=== PATIENT | male | born 1990 | race African-American/Black ===

== ENCOUNTER 2018-08-15 06:27 | Observation (INO) ==
[2018-08-15] MEDS ORDERED: Morphine Sulfate Inj 8 MG/ML Vial IV.PUSH ONE (06:33)
--- NOTE | 2018-08-15 07:35 | ED ---
HPI General Chief complaint: Abdominal Pain Stated complaint: Medical Time Seen by Provider: 08/15/18 06:29 Source: patient Mode of arrival: EMS Limitations: no limitations History of Present Illness HPI Narrative: 28-year-old male came to the emergency room brought in by EMS for sudden onset left distal leg pain. Patient seemed very uncomfortable. Says the pain is 10 out of 10. He is never had this kind of pain before. Patient says he was sleeping when the pain woke him up. Vital signs are stable otherwise. He is never had this kind of pain in the past. It radiates to his abdomen. He has been nauseous and soon after arriving patient started to vomit. No aggravating or relieving symptoms identified. The onset has been just prior to arrival. Related Data Home Medications Medication Instructions Recorded Confirmed No Known Home Medications 08/15/18 08/15/18 Allergies Allergy/AdvReac Type Severity Reaction Status Date / Time Penicillins Allergy Intermediate Hives Verified 05/02/18 08:14 shellfish derived Allergy Intermediate Hives Verified 05/02/18 08:14 Review of Systems ROS: all other systems reviewed are negative REPLACED BY [facility] Medical History Medical History H/O pilonidal cyst (Acute) Social History Social History Substance History: Active Abuse Second Hand Smoke Exposure: Yes Smoking Status: Current every day smoker Tobacco Type: Cigarettes How Often Do You Have a Drink Containing Alcohol: Never Recent Travel in [facility] within the Last 8 Weeks: No Recent Out of Country Travel within the Last 8 Weeks: No Substance Abuse Detail Marijuana: Substance Use Status: Active Route Used Substance Abuse: By Mouth Reason for Use: Calm Down Immunization History Tetanus Immunization: <5 Years Exam Narrative Exam Narrative: GENERAL: Awake, alert, anxious, severe distress SKIN: Focused skin assessment warm/dry. HEAD: Atraumatic. Normocephalic. EYES: Pupils equal and round. No scleral icterus. No injection or drainage. ENT: No nasal bleeding or discharge. Mucous membranes pink and moist. NECK: Trachea midline. No JVD. CARDIOVASCULAR: Regular rate and rhythm. No murmur appreciated. RESPIRATORY: No accessory muscle use. Clear to auscultation. Breath sounds equal bilaterally. GASTROINTESTINAL: Abdomen soft, non-tender, nondistended. Hepatic and splenic margins not palpable. : The left testicle appears to be high rise and talked. No cremasteric reflex. Tender to touch. MUSCULOSKELETAL: No obvious deformities. No clubbing. No cyanosis. No edema. NEUROLOGICAL: Awake and alert. No obvious cranial nerve deficits. Motor grossly within normal limits. Normal speech. PSYCHIATRIC: Appropriate mood and affect; insight and judgment normal. Course Reevaluation(s) Reevaluation #1: Patient updated and agrees to operation Time: 08:45 Consultations Consultation #1: dr cerrato will arrange for patient to got to the OR 844 Initial Documented Vital Signs Pulse Rate 60 08/15/18 06:32 Respiratory Rate 22 08/15/18 06:32 Blood Pressure 143/88 H 08/15/18 06:32 Pulse Oximetry 100 08/15/18 06:32 Last Documented Vital Signs Temperature 98.6 F 08/16/18 16:10 Pulse Rate 64 08/16/18 16:10 Respiratory Rate 18 08/16/18 16:10 Blood Pressure 116/70 08/16/18 16:10 Pulse Oximetry 99 08/16/18 16:10 Sign Out Sign Out Data: Patient Sign Out occurred on 08/15/18 at 07:44. Patient's care was discussed, and care was transferred from Rex Hunt to Mabel Gustafson MD. Sign Out Comment: High suspicion for testicular torsion. Follow-up testicular ultrasound report. Consult urology because of high suspicion. Last updated by Rex Hunt MD at 08/15/18 07:38 Post-Handoff Eval: Ultrasound shows torsion, stat urology consult call placed at [phone] Medical Decision Making [facility] Narrative Medical decision making narrative: 7:35 AM patient was medicated for pain. Awaiting for the ultrasound. Case has been signed over to the oncoming ER physician. High suspicion for testicular torsion. Medical Screen Exam Complete: Yes Emergency Medical Condition: Yes Lab Data Result diagrams: 08/15/18 06:30 08/15/18 06:30 Lab Results 08/15/18 08/15/18 08/16/18 Range/Units 06:30 06:30 06:45 WBC 10.9 (4.0-11.0) th/mm3 RBC 4.77 (4.50-5.90) mil/mm3 Hgb 15.0 (13.0-17.0) gm/dL Hct 43.7 (39.0-51.0) % MCV 91.6 (80.0-100.0) fL MCH 31.5 (27.0-34.0) pg MCHC 34.4 (32.0-36.0) % RDW 13.7 (11.6-17.2) % Plt Count 270 (150-450) th/mm3 MPV 8.6 (7.0-11.0) fL Prelim Diff (Auto) Slide review pending Neut % (Auto) 26.0 (16.0-70.0) % Lymph % (Auto) 62.4 H (9.0-44.0) % [place] % (Auto) 6.3 (0.0-8.0) % Eos % (Auto) 4.2 H (0.0-4.0) % Baso % (Auto) 1.1 (0.0-2.0) % Neut # (Auto) 2.8 (1.8-7.7) th/mm3 Lymph # (Auto) 6.8 H (1.0-4.8) th/mm3 [place] # (Auto) 0.7 (0.0-0.9) th/mm3 Eos # (Auto) 0.5 H (0.0-0.4) th/mm3 Baso # (Auto) 0.1 (0.0-0.2) th/mm3 WBC Differential Manual diff final Seg Neuts % (Manual) 31 (16-70) % Lymphocytes % (Manual) 49 H (9-44) % Atypical Lymphs % (Man) 13 H (0-0) % Monocytes % (Manual) 5 (0-8) % Eosinophils % (Manual) 1 (0-4) % Basophils % (Manual) 1 (0-2) % Abs Neuts (Manual) 3.4 (1.8-7.7) th/mm3 Differential Comment . Platelet Estimate Normal (Normal) Platelet Morphology Normal (Normal) RBC Morphology Normal (Normal) Sodium 139 (136-145) meq/L Potassium 3.8 (3.5-5.1) meq/L Chloride 106 (98-107) meq/L Carbon Dioxide 26.5 (21.0-32.0) meq/L Anion Gap 7 (5-15) meq/L BUN 12 (7-18) mg/dL Creatinine 0.96 (0.60-1.30) mg/dL Estimated GFR Greater than 89 (>89) mL/min Random Glucose 142 H (74-106) mg/dL Calcium 9.1 (8.5-10.1) mg/dL Magnesium 1.9 (1.5-2.5) mg/dL Total Bilirubin 0.3 (0.2-1.0) mg/dL AST 20 (15-37) U/L ALT 28 (12-78) U/L Alkaline Phosphatase 77 (45-117) U/L Total Protein 7.4 (6.4-8.2) g/dL Albumin 4.0 (3.4-5.0) g/dL Urine Color Yellow (Yellw/Straw) Urine Clarity Clear (Clear) Urine pH 6.0 (5.0-8.5) Ur Specific Concrete 1.012 (1.002-1.035) Urine Protein Negative (Neg-Trace) mg/dL Urine Glucose (UA) 50 (Negative) mg/dL Urine Ketones Negative (Negative) mg/dL Urine Occult Blood Negative (Negative) Urine Nitrate Negative (Negative) Urine Bilirubin Negative (Negative) Urine Urobilinogen Less than 2 (Less than 2) mg/dL Ur Leukocyte Esterase Negative (Negative) Urine RBC Less than 1 (0-3) /hpf Urine WBC 4 (0-5) /hpf Ur Squamous Epith Cells <1 (0-5) /hpf Urine Mucus Few H (Occasional) /lpf Micro UA Comment Culture not ind Ur Microscopic Review Not Reportable Urine Culture Comments Culture not ind Imaging Data Radiologist's impression: Scrotum Ultrasound 08/15/18 06:29 CONCLUSION: 1. No definite flow in the left testicle, raising the possibility of torsion. Clinical correlation. 2. Right testicle unremarkable. Discharge Plan Discharge Disposition Patient Disposition: ED Admit(ED Internal Use Only) Discharge Condition Condition: Good Discharge Order Discharge Orders: Discharge Order (Routine); Ordered 08/16/18 Ordered By: Leon Cerrato ED Use Only Admit Order (Routine); Ordered 08/15/18 Ordered By: Mabel Gustafson Discharge Details Diagnosis: Testicular torsion Physicians Team ED Provider: Mabel Gustafson Primary Care Provider: Primary Care BisiXimena Attending Provider: Leon Cerrato Other Providers: Leon Cerrato Status ED Status: Left Department Discharge Information Discharge Date/Time: 08/15/18 09:41
--- NOTE | 2018-08-15 08:24 | US ---
EXAM DATE: 08/15/2018 8:15 AM EST AGE/SEX: 28 years / Male INDICATIONS: Testicular pain. CLINICAL DATA: This is the patient's initial encounter. Patient reports that signs and symptoms have been present for 1 day and indicates a pain score of 10/10. MEDICAL/SURGICAL HISTORY: . History of pilonidal cyst. None. [place] [facility] [place] 03/22/2018. . MEASUREMENTS: Right Testicle:__3.4 x 2.5 x 3.8 cm Left Testicle:__2.8 x 3.5 x 3.1 cm FINDINGS: RIGHT: Testicle: Homogeneous echotexture without intra or extratesticular mass. Blood flow is symmetric and within normal limits. Epididymis: Within normal limits. Hydrocele: No hydrocele. Varicocele: No evidence of varicocele. LEFT: Testicle: Homogeneous echotexture without mass no definite flow seen within the left testicle Epididymis: Enlarged. Hydrocele: No hydrocele. Varicocele: No evidence of varicocele. Scrotum: Within normal limits. CONCLUSION: 1. No definite flow in the left testicle, raising the possibility of torsion. Clinical correlation. 2. Right testicle unremarkable. Electronically signed by: Adan Hu MD Board Certified Radiologist 08/15/2018 8:23 AM EST
[2018-08-15 08:35] LABS: Baso # (Auto) 0.1 th/mm3 (0.0-0.2); Baso % (Auto) 1.1 % (0.0-2.0); Eos # (Auto) 0.5 th/mm3 (0.0-0.4); Eos % (Auto) 4.2 % (0.0-4.0); Hematocrit 43.7 % (39.0-51.0); Lymph # (Auto) 6.8 th/mm3 (1.0-4.8); Lymph % (Auto) 62.4 % (9.0-44.0); Mean Corpuscular HGB Conc 34.4 % (32.0-36.0); Mean Corpuscular Hemoglobin 31.5 pg (27.0-34.0); Mean Corpuscular Volume 91.6 fL (80.0-100.0); Mean Platelet Volume 8.6 fL (7.0-11.0); Mono # (Auto) 0.7 th/mm3 (0.0-0.9); Mono % (Auto) 6.3 % (0.0-8.0); Neut # (Auto) 2.8 th/mm3 (1.8-7.7); Platelet Count 270 th/mm3 (150-450); Red Blood Count 4.77 mil/mm3 (4.50-5.90); Red Cell Distribution Width 13.7 % (11.6-17.2); White Blood Count 10.9 th/mm3 (4.0-11.0)
[2018-08-15 08:48] LABS: Alanine Aminotransferase 28 U/L (12-78); Anion Gap 7 meq/L (5-15); Aspartate Aminotransferase 20 U/L (15-37); Blood Urea Nitrogen 12 mg/dL (7-18); Calcium 9.1 mg/dL (8.5-10.1); Carbon Dioxide 26.5 meq/L (21.0-32.0); Chloride 106 meq/L (98-107); Glomerular Filtration Rate Greater Than 89 mL/min (>89); Glucose,Random 142 mg/dL (74-106); Magnesium 1.9 mg/dL (1.5-2.5); Potassium 3.8 meq/L (3.5-5.1); Sodium 139 meq/L (136-145)
[2018-08-15 08:50] LABS: Alkaline Phosphatase 77 U/L (45-117); Total Protein 7.4 g/dL (6.4-8.2)
[2018-08-15] MEDS ORDERED: Morphine Inj 4 MG/ML Vial IV.PUSH ONE (08:52)
[2018-08-15 09:08] LABS: Atypical Lymphs 13 % (0-0); Eosinophils 1 % (0-4); Lymphocytes 49 % (9-44); Monocytes 5 % (0-8)
[2018-08-15 09:09] LABS: Platelet Estimate Normal (Normal); Platelet Morphology Normal (Normal); RBC Morphology Normal (Normal)
[2018-08-15] MEDS ORDERED: Ketorolac Inj 30 MG/ML (IVP) Vial IV.PUSH ONE (10:42)
[2018-08-15] MEDS ORDERED: Lidocaine PF 1% Inj 5 ML Syringe INFILTRATN ONE (10:42)
[2018-08-15] MEDS ORDERED: Glycopyrrolate Inj 1 MG/5 ML Syringe IV.PUSH ONE (10:42)
[2018-08-15] MEDS ORDERED: Neostigmine Inj 5 MG/5 ML Syringe IV.PUSH ONE (10:42)
[2018-08-15] MEDS ORDERED: Levofloxacin 500 mg Premix Inj 500 MG/100 ML PIGGYBACK IV.SIG ONE (10:56)
--- NOTE | 2018-08-15 12:54 | P.CONURO ---
History of Present Illness Service: ED Consult date: 08/15/18 Requesting Physician: Mabel Gustafson Reason for Consult: Torsion of left testicle Primary Care Provider: No Primary Care Physician Chief Complaint: Pain left testicle. History of Present Illness: Pain LEFT testicle woke patient at approximately 04:00. First episode, never before. ED exam compatible with torsion. ED Ultrasound shows no blood flow to the LEFT testicle compatible with torsion. Right testicle WNL. PMFSH - History History Provided By: Patient, Medical Record, Rivet Tosser / EMT - Medical History Medical History: Medical History (Last Reviewed 08/15/18 @ 07:34 by Rex Hunt MD) H/O pilonidal cyst - Social History I have reviewed the patient's Social History: Yes - Tobacco History Second Hand Smoke Exposure: Yes Tobacco Use In Past 30 Days: Yes Smoking Status: Current every day smoker Tobacco Type: Cigarettes - Alcohol History How Often Do You Have a Drink Containing Alcohol: Never - Substance Use History Substance History: Active Abuse - Substance Use Type Marijuana Status: Active Route Used: By Mouth Reason for Use: Calm Down - Travel History Recent Travel in the [place] Within the Last 8 Weeks: No Recent Travel Out of the Country Within the Last 8 Weeks: No - Immunization History Tetanus Immunization: <5 Years Medications and Allergies Active Medications: Active Medications Sodium Chloride (Ns Flush) 2 ml IV.FLUSH PRN PRN PRN Reason: FLUSH AFTER USING IV ACCESS Last Admin: 08/15/18 09:14 Dose: 2 ml Allergies Allergy/AdvReac Type Severity Reaction Status Date / Time Penicillins Allergy Intermediate Hives Verified 05/02/18 08:14 shellfish derived Allergy Intermediate Hives Verified 05/02/18 08:14 Home Medications Medication Instructions Recorded Confirmed Type No Known Home Medications 08/15/18 08/15/18 History Physical Exam Vital Signs - 24 hr 08/15/18 06:32 08/15/18 08:00 08/15/18 09:41 Temperature 98.1 F Pulse Rate 60 49 L 48 L Respiratory Rate 22 15 16 Blood Pressure 143/88 H 132/84 130/80 Pulse Oximetry 100 97 98 08/15/18 09:45 Temperature 98 F Pulse Rate 48 L Respiratory Rate 18 Blood Pressure 131/89 Pulse Oximetry 98 Physical Exam: GENERAL: This is a well-nourished, well-developed patient, in no apparent distress. SKIN: No rashes, ecchymoses or lesions. Cool and dry. HEAD: Atraumatic. Normocephalic. No temporal or scalp tenderness. EYES: Pupils equal round and reactive. Extraocular motions intact. No scleral icterus. No injection or drainage. ENT: Nose without bleeding, purulent drainage or septal hematoma. Throat without erythema, tonsillar hypertrophy or exudate. Uvula midline. Airway patent. NECK: Trachea midline. No JVD or lymphadenopathy. Supple, nontender, no meningeal signs. CARDIOVASCULAR: RESPIRATORY: GASTROINTESTINAL: Abdomen soft, non-tender, nondistended. No hepato-splenomegaly , or palpable masses. No guarding. GENITOURINARY: External genitalia: Left testicle too tender to do good exam. Left spermatic cord feels WNL. Right testicle and cord WNL. Penis: circumcised, WNL. MUSCULOSKELETAL: Extremities without clubbing, cyanosis, or edema. No joint tenderness, effusion, or edema noted. NEUROLOGICAL: Awake and alert. Cranial nerves II through XII intact. Motor and sensory grossly within normal limits. Normal speech. Laboratory Results - last 24 hr 08/15/18 08/15/18 06:30 06:30 WBC 10.9 RBC 4.77 Hgb 15.0 Hct 43.7 MCV 91.6 MCH 31.5 MCHC 34.4 RDW 13.7 Plt Count 270 MPV 8.6 Prelim Diff (Auto) Slide review pending Neut % (Auto) 26.0 Lymph % (Auto) 62.4 H [place] % (Auto) 6.3 Eos % (Auto) 4.2 H Baso % (Auto) 1.1 Neut # (Auto) 2.8 Lymph # (Auto) 6.8 H [place] # (Auto) 0.7 Eos # (Auto) 0.5 H Baso # (Auto) 0.1 WBC Differential Manual diff final Seg Neuts % (Manual) 31 Lymphocytes % (Manual) 49 H Atypical Lymphs % (Man) 13 H Monocytes % (Manual) 5 Eosinophils % (Manual) 1 Basophils % (Manual) 1 Abs Neuts (Manual) 3.4 Differential Comment . Platelet Estimate Normal Platelet Morphology Normal RBC Morphology Normal Sodium 139 Potassium 3.8 Chloride 106 Carbon Dioxide 26.5 Anion Gap 7 BUN 12 Creatinine 0.96 Estimated GFR Greater than 89 Random Glucose 142 H Calcium 9.1 Magnesium 1.9 Total Bilirubin 0.3 AST 20 ALT 28 Alkaline Phosphatase 77 Total Protein 7.4 Albumin 4.0 Result Diagrams: 08/15/18 06:30 08/15/18 06:30 Personally reviewed images: Yes Imaging: ITS Impressions Scrotum Ultrasound 08/15/18 06:29 CONCLUSION: 1. No definite flow in the left testicle, raising the possibility of torsion. Clinical correlation. 2. Right testicle unremarkable. Assessment and Plan - Assessment (1) Testicular torsion Code(s): N44.00 - Torsion of testis, unspecified Status: Acute Onset Date: ~ 08/15/18 - Plan To OR REDD to explore testes. Remove left if infarcted, otherwise fixation of both testes. Fully explained to patient, he understands and agrees. Discussed Condition With: Patient, Dr. Gustafson, nurse, mental health tech (images personally reviewed).
[2018-08-15] MEDS ORDERED: fentaNYL Citrate Inj 100 MCG/2 ML Ampul ONE (12:55)
--- NOTE | 2018-08-15 13:10 | P.OP ---
- Preoperative Diagnosis (1) Testicular torsion - Postoperative Diagnosis (1) Testicular torsion Date of procedure: 08/15/18 Procedure: Exploration of left testicle. Fixation of both left and right testes. Anesthesia: GETA Surgeon: Leon Sanchez MD Estimated blood loss (mL): 2 Pathology: other (Testicular appendages, right and left.) Operation and Findings: Patient was placed supine on the operating table, given a general anesthetic with endotracheal airway. IV Levaquin was given preoperatively. The scrotal area was then shaved with electric razor. He was then prepped with Hibiclens including the scrotum penis suprapubic area and medial thighs. He was then draped sterilely. 2 timeouts were done first to identify the patient, the planned procedure, the correct side, surgeon, medication and allergies etc. Then a fire safety timeout was done. A transverse scrotal incision was made on the anterior surface including several layers of subcutaneous tissues. The was started on the left side. The tunica was elevated and incised. The fluid was expressed. The left testicle was found to be not twisted but capable of torsion. The color of the testicle and cord structures were normal. The epididymis was noted to be slightly swollen. The testicle was replaced into the scrotal contents and then one 3-0 chromic suture was used to fixate the testicle. The suture including the testicular tunica the scrotal layers laterally and the subcutaneous tissue. Identical procedure was done on the the right side making a transverse scrotal incision opening the tunica and placing a suture through the right testicle laterally to include the subcutaneous tissues and but not the skin. Both sides were done using a 3-0 chromic suture. The skin was then closed in layers first the tunica was closed with a running stitch of 3-0 chromic. Then the subcutaneous layers were included in the skin with an interrupted stitch of 3-0 chromic. A sterile dressing was applied Patient tolerated the procedure well without any surgical or anesthetic complications and he was found to be stable in recovery room. Plan is to keep patient in observation overnight, treated any discomfort with analgesics, and hopefully he will be discharged tomorrow. Follow-up in the [place] [facility] with either Dr. Campbell or Dr. Tubbs in 1-2 weeks.
[2018-08-15] MEDS: Ketorolac Inj 30 MG/ML (IVP) Vial IV.PUSH SCH ×2 (13:32→18:00)
--- NOTE | 2018-08-15 14:03 | P.HPURO ---
History of Present Illness Service: Urology Primary Care Physician: No Primary Care Physician Chief Complaint: Pain left testicle. - Diagnosis (1) Testicular torsion PMFSH - History History Provided By: Patient, Medical Record, Shuttle Final Inspector / EMT - Medical History Medical History: Medical History (Last Reviewed 08/15/18 @ 07:34 by Rex Hunt MD) H/O pilonidal cyst - Tobacco History Second Hand Smoke Exposure: Yes Tobacco Use In Past 30 Days: Yes Smoking Status: Current every day smoker Tobacco Type: Cigarettes - Alcohol History How Often Do You Have a Drink Containing Alcohol: Never - Substance Use History Substance History: Active Abuse - Substance Use Type Marijuana Status: Active Route Used: By Mouth Reason for Use: Calm Down - Travel History Recent Travel in the [place] Within the Last 8 Weeks: No Recent Travel Out of the Country Within the Last 8 Weeks: No - Immunization History Tetanus Immunization: <5 Years Physical Exam Vital Signs - 24 hr 08/15/18 06:32 08/15/18 08:00 08/15/18 09:41 Temperature 98.1 F Pulse Rate 60 49 L 48 L Respiratory Rate 22 15 16 Blood Pressure 143/88 H 132/84 130/80 Pulse Oximetry 100 97 98 08/15/18 09:45 08/15/18 12:50 08/15/18 13:00 Temperature 98 F 97.6 F Pulse Rate 48 L 59 L 50 L Respiratory Rate 18 18 16 Blood Pressure 131/89 155/86 H 133/85 Pulse Oximetry 98 99 98 08/15/18 13:15 08/15/18 13:20 Temperature 97.6 F Pulse Rate 55 L Respiratory Rate 16 Blood Pressure 140/85 Pulse Oximetry 96 96 Physical Exam: GENERAL: This is a well-nourished, well-developed patient, in no apparent distress. SKIN: No rashes, ecchymoses or lesions. Cool and dry. Tattoo right arm of city buildings and letter "C". HEAD: Atraumatic. Normocephalic. No temporal or scalp tenderness. EYES: Pupils equal round and reactive. Extraocular motions intact. No scleral icterus. No injection or drainage. ENT: Nose without bleeding, purulent drainage or septal hematoma. Throat without erythema, tonsillar hypertrophy or exudate. Uvula midline. Airway patent. NECK: Trachea midline. No JVD or lymphadenopathy. Supple, nontender, no meningeal signs. CARDIOVASCULAR: RESPIRATORY: GASTROINTESTINAL: Abdomen soft, non-tender, nondistended. No hepato-splenomegaly , or palpable masses. No guarding. GENITOURINARY: External genitalia: Left testicle too tender to evaluate. Left cord feels WNL. Right testicle WNL, non tender. Penis: circumcised, WNL. MUSCULOSKELETAL: Extremities without clubbing, cyanosis, or edema. No joint tenderness, effusion, or edema noted. NEUROLOGICAL: Awake and alert. Cranial nerves II through XII intact. Motor and sensory grossly within normal limits. Normal speech. Lab results reviewed: Yes Laboratory Results - last 24 hr 08/15/18 08/15/18 06:30 06:30 WBC 10.9 RBC 4.77 Hgb 15.0 Hct 43.7 MCV 91.6 MCH 31.5 MCHC 34.4 RDW 13.7 Plt Count 270 MPV 8.6 Prelim Diff (Auto) Slide review pending Neut % (Auto) 26.0 Lymph % (Auto) 62.4 H [place] % (Auto) 6.3 Eos % (Auto) 4.2 H Baso % (Auto) 1.1 Neut # (Auto) 2.8 Lymph # (Auto) 6.8 H [place] # (Auto) 0.7 Eos # (Auto) 0.5 H Baso # (Auto) 0.1 WBC Differential Manual diff final Seg Neuts % (Manual) 31 Lymphocytes % (Manual) 49 H Atypical Lymphs % (Man) 13 H Monocytes % (Manual) 5 Eosinophils % (Manual) 1 Basophils % (Manual) 1 Abs Neuts (Manual) 3.4 Differential Comment . Platelet Estimate Normal Platelet Morphology Normal RBC Morphology Normal Sodium 139 Potassium 3.8 Chloride 106 Carbon Dioxide 26.5 Anion Gap 7 BUN 12 Creatinine 0.96 Estimated GFR Greater than 89 Random Glucose 142 H Calcium 9.1 Magnesium 1.9 Total Bilirubin 0.3 AST 20 ALT 28 Alkaline Phosphatase 77 Total Protein 7.4 Albumin 4.0 Result Diagrams: 08/15/18 06:30 08/15/18 06:30 Personally reviewed images: Yes Imaging: ITS Impressions Scrotum Ultrasound 08/15/18 06:29 CONCLUSION: 1. No definite flow in the left testicle, raising the possibility of torsion. Clinical correlation. 2. Right testicle unremarkable. Caprini VTE Risk Assessment Caprini VTE Risk Assessment: No/Low Risk (score <= 1) Caprini Risk Assessment Model: Point Value = 1 Point Value = 2 Point Value = 3 Point Value = 5 Age 41-60 Minor surgery BMI > 25 kg/m2 Swollen legs Varicose veins or History of unexplained or recurrent spontaneous Oral contraceptives or hormone replacement Sepsis (< 1 month) Serious lung disease, including pneumonia (< 1 month) Abnormal pulmonary function Acute myocardial infarction Congestive heart failure (< 1 month) History of inflammatory bowel disease Medical patient at bed rest Age 61-74 Arthroscopic surgery Major open surgery (> 45 min) Laparoscopic surgery (> 45 min) Malignancy Confined to bed (> 72 hours) Immobilizing plaster cast Central venous access Age >= 75 History of VTE Family history of VTE Factor V Leiden Prothrombin [id number] Lupus anticoagulant Anticardiolipin antibodies Elevated serum homocysteine Heparin-induced thrombocytopenia Other congenital or acquired thrombophilia Stroke (< 1 month) Elective arthroplasty Hip, pelvis, or leg fracture Acute spinal cord injury (< 1 month) Prophylaxis Regimen: Total Risk Factor Score Risk Level Prophylaxis Regimen 0-1 Low Early ambulation 2 Moderate Order ONE of the following: *Sequential Compression Device (SCD) *Heparin 5000 units SQ BID 3-4 Higher Order ONE of the following medications: *Heparin 5000 units SQ TID *Enoxaparin/Lovenox 40 mg SQ daily (WT < 150 kg, CrCl > 30 mL/min) *Enoxaparin/Lovenox 30 mg SQ daily (WT < 150 kg, CrCl > 10-29 mL/min) *Enoxaparin/Lovenox 30 mg SQ BID (WT < 150 kg, CrCl > 30 mL/min) AND/OR *Sequential Compression Device (SCD) 5 or more Highest Order ONE of the following medications: *Heparin 5000 units SQ TID (Preferred with Epidurals) *Enoxaparin/Lovenox 40 mg SQ daily (WT < 150 kg, CrCl > 30 mL/min) *Enoxaparin/Lovenox 30 mg SQ daily (WT < 150 kg, CrCl > 10-29 mL/min) *Enoxaparin/Lovenox 30 mg SQ BID (WT < 150 kg, CrCl > 30 mL/min) AND *Sequential Compression Device (SCD) Assessment and Plan - Assessment (1) Testicular torsion Code(s): N44.00 - Torsion of testis, unspecified Status: Acute Onset Date: ~ 08/15/18 - Plan To OR REDD to explore testes. Remove left if infarcted, otherwise fixation of both testes. Fully explained to patient, he understands and agrees. Discussed Condition With: Patient, Dr. Gustafson, generation technologist (images personally reviewed). Discharge Planning: Post op tomorrow with analgesics. F/U [facility] one week.
[2018-08-16] MEDS: Ketorolac Inj 30 MG/ML (IVP) Vial IV.PUSH SCH ×3 (00:03→14:24)
[2018-08-16 07:05] VITALS: RESP 18
[2018-08-16 07:18] LABS: Bilirubin,Urine Negative (Negative); Clarity,Urine Clear (Clear); Color,Urine Yellow (Yellw/Straw); Glucose,Urine (UA) 50 mg/dL (Negative); Leukocyte Esterase,Urine Negative (Negative); Mucus,Urine Few /lpf (Occasional); Nitrite,Urine Negative (Negative); Specific Gravity,Urine 1.012 (1.002-1.035); Squamous Epithelial Cell,Urine <1 /hpf (0-5)
[2018-08-16 11:20] VITALS: TEMP 98.6
[2018-08-16 16:12] VITALS: BP 116/70; PULSE 64; O2SAT 99
--- NOTE | 2018-08-16 16:46 | P.DS ---
Date of admission: 08/15/18 13:56 Primary care physician: No Primary Care Physician Attending physician on discharge: Leon Sanchez Anticipated date of discharge: 08/16/18 Brief History from admission: Presented with left testicular pain. Found to have a torsion of the left testicle. In OR, both testes were suture fixated. The Left testicle was found to be pink, healthy without any posterior attachment. Patient update on day of discharge: Post op recovery uneventful. Minimal pain. Patient walking and voiding urine. Incision looks good. DS: Diagnosis - Discharge Diagnosis (1) Testicular torsion Status: Acute Diagnosis: Principal (Left testicle) DS: Summary Hospital Course: Post op overnight stay in Observation unit. Initially slow to recover from anesthetic sedation. Next day, alert, ambulating, voiding well, with minimal pain. - Time Spent with Patient Total time spent providing and/or coordinating discharge services: 15 min. Less than 30 minutes - Quality: AMI Clinical Trial Participant: No - Quality: VTE Deep Vein Thrombosis/Pulmonary Embolism Present on Admission: No Exam Vital signs: Vital Signs 08/15/18 20:00 08/16/18 00:32 08/16/18 01:53 Temperature 98.1 F 98.1 F Pulse Rate 53 L 70 Respiratory Rate 16 16 12 Blood Pressure 118/81 107/62 Pulse Oximetry 99 98 08/16/18 05:34 08/16/18 07:03 08/16/18 11:18 Temperature 98.0 F 98.4 F 98.6 F Pulse Rate 73 62 53 L Respiratory Rate 12 18 18 Blood Pressure 114/69 111/76 111/63 Pulse Oximetry 95 99 96 08/16/18 16:10 Temperature 98.6 F Pulse Rate 64 Respiratory Rate 18 Blood Pressure 116/70 Pulse Oximetry 99 Intake & Output 08/15/18 08/16/18 08/16/18 18:59 06:59 18:59 Intake Total 1340 / 1340 1250 / 1250 1000 / 1000 Output Total 2 / 2 Balance 1338 / 1338 1250 / 1250 1000 / 1000 Weight 72.575 kg Intake: IV 100 / 100 1000 / 1000 1000 / 1000 LR 1000 mL Inj 1,000 ML @ 100 1000 / 1000 1000 / 1000 mls/hr IV.CONT .Q10H [facility] Rx#: [id number] Levaquin 500 mg Premix Inj 500 100 / 100 mg In 100 ml @ 0 mls/hr IV.SIG .STK-MED ONE Rx#:[id number] Oral 240 / 240 250 / 250 Anesthesia Amount 1000 / 1000 Output: Estimated Blood Loss 2 / 2 Other: # Voids 3 Date of Last Bowel Movement 08/14/18 08/14/18 Weight On Admission 12.575 kg Narrative: No scrotal swelling, scrotal incision looks good, intact. - Constitutional no acute distress - Routine HEENT Exam Head: Present: normocephalic Eye: Present: EOMI, PERRL - Routine Neck Exam Present: supple, full ROM - Routine Cardiovascular Exam Present: RRR - Routine Abdominal Exam Present: soft, normoactive bowel sounds. Absent: tenderness - Routine Exam Patient deferred: penile exam (WNL) Testicular: Bilateral tenderness Scrotal: Present: tenderness. Absent: swelling - Routine Extremities Exam Present: full ROM - Routine Skin Exam Present: intact - Routine Neurological Exam Present: alert, oriented X3 Results Procedures completed during hospitalization: Exploration of left testicle. Fixation of both left and right testes. Completed studies during hospitalization: Testicular Ultrasound. Pending studies at discharge: Pending at discharge 08/15/18 Surgical [PTH] Routine Labs on day of discharge: Labs from last 24 hours 08/16/18 06:45 Urine Color Yellow Urine Clarity Clear Urine pH 6.0 Ur Specific [place] 1.012 Urine Protein Negative Urine Glucose (UA) 50 Urine Ketones Negative Urine Occult Blood Negative Urine Nitrate Negative Urine Bilirubin Negative Urine Urobilinogen Less than 2 Ur Leukocyte Esterase Negative Urine RBC Less than 1 Urine WBC 4 Ur Squamous Epith Cells <1 Urine Mucus Few H Micro UA Comment Culture not ind Ur Microscopic Review Not Reportable Urine Culture Comments Culture not ind - Impressions ITS Impressions Scrotum Ultrasound 08/15/18 06:29 CONCLUSION: 1. No definite flow in the left testicle, raising the possibility of torsion. Clinical correlation. 2. Right testicle unremarkable. Discharge Plan - Discharge Disposition Patient Disposition: 01 Discharge Home - Discharge Condition Condition: Good - Discharge Order Discharge Orders: Discharge Order (Routine); Ordered 08/16/18 Ordered By: Leon Sanchez - Physicians Team Primary Care Provider: Primary Care Charissai,No Attending Provider: Leon Sanchez Other Providers: Leon Sanchez MD
== END 2018-08-16 17:18 | disposition home or self-care (01) ==
LOC: NEPC 06:27 → NEPGCP 08:57 → HSDC 08:57
PROVIDERS: ADMIT Urology; ATTEND Urology
CPT/HCPCS: 76870; 80053; 81001; 83735; 85025; 88304; 88309; 90774; 90775; 90784; 93975; 96361; 96374; 96375; 96376; 99285; C8952; G0378; J1100; J1885; J1956; J2250; J2270; J2405; J2704; J2710; J3010; J7120